=== PATIENT | male | born 1985 | race Caucasian/White ===

== ENCOUNTER 2019-12-01 20:05 | Emergency (ER) | payer BC ==
[2019-12-01 20:12] VITALS: BP 150/98
[2019-12-01] MEDS ORDERED: SULFAMETHOXAZOLE/TRIMETHOPRIM 800-160 MG TABLET PO ONE (20:45)
[2019-12-01] MEDS ORDERED: CLINDAMYCIN HCL 150 MG CAPSULE PO ONE (20:45)
[2019-12-01] MEDS ORDERED: DIPH/PERTUSS(ACELL)/TETANUS VAC/PF 0.5 ML SYR (>=10YO) IM ONE (20:46)
--- NOTE | 2019-12-01 20:55 | ER Document Report ---
ED Animal Bite - General Chief Complaint: Dog Bite Stated Complaint: DOG BITE/HANDS Time Seen by Provider: 12/01/19 20:36 Primary Care Provider: [facility] [Provider Group] - Follow up as needed [facility] [Provider Group] - Follow up as needed Mode of Arrival: Ambulatory Information source: Patient Notes: 33-year-old male presents to ED for complaint of dog bites to both hands and arms. He states that his neighbors dog which is a husky bit him just before coming to the emergency room. He states the neighbor states that the dog's shots are up-to-date but he did not see the records. He states he does note a dog and he does know the neighbor. He states he had a friend go over to the house to make sure that there was a rabies vaccination. Patient states she has a past medical history of seizures and a right clavicle fracture is no surgeries. He states he is allergic to penicillin. He does not smoke rarely drinks and does not use any illicit drugs. He states he does work at [employer] and lives with his family. Patient is alert oriented respirations regular nonlabored speaking in full sentences. He states he does not need any pain medicines at this time. REVIEW OF SYSTEMS: CONSTITUTIONAL : Denies fever, chills, or sweats. Denies recent illness. MUSCULOSKELETAL: Denies neck or back pain or joint pain or swelling. SKIN: Multiple shallow dog bites to both hands and both arms with multiple scratches to both arms from his neighbors dog HEMATOLOGIC : Denies easy bruising or bleeding. LYMPHATIC: Denies swollen, enlarged glands. NEUROLOGICAL: Denies altered mental status or loss of consciousness. Denies headache. Denies weakness or paralysis or loss of use of either side. Denies problems with gait or speech. Denies sensory or motor loss. PSYCHIATRIC: Denies anxiety or stress or depression. ALL OTHER SYSTEMS REVIEWED AND NEGATIVE. PHYSICAL EXAMINATION: GENERAL: Well-appearing, well-nourished and in no acute distress. HEAD: Atraumatic, normocephalic. LUNGS: No respiratory distress Musculoskeletal: Full range of motion to both hands and wrist. He states his pain level is about a 1 NEUROLOGICAL: Normal speech, normal gait. PSYCH: Normal mood, normal affect. SKIN: Patient has 2 puncture verma on the back of the left hand and 2 on the palm and he has dog scratches to the left arm. On the right hand he has 1 puncture wound to the index finger and 2 puncture verma to the back of the hand and one small puncture yesica to the thumb. He has 1/2 cm laceration from a dog bite to the right arm with multiple superficial scratches. TRAVEL OUTSIDE OF THE [place] IN LAST 30 DAYS: No - HPI Severity of injury: Scratched, Bitten Onset: Just prior to arrival Quality of pain: Achy Pain Level: 1 Context of attack: Approached animal Summary of what happened: Patient states the dog was off his leash going down the road. He states he stopped his car grabbed his collar and the dog started biting him. Type of animal: Dog Appearance of animal: Appeared well Animal captured or known: Yes Animal control notified: Yes Animal control form completed: Yes - Related Data Allergies/Adverse Reactions: amoxicillin [Amoxicillin] Allergy (Verified 02/07/14 23:20) Penicillins Allergy (Verified 02/07/14 23:20) Past Medical History - General Information source: Patient - Social History Smoking Status: Never Smoker Frequency of alcohol use: Rare Drug Abuse: None Occupation: [employer] Lives with: Family Family History: Reviewed & Not Pertinent Patient has suicidal ideation: No Patient has homicidal ideation: No - Past Medical History Cardiac Medical History: Reports: None Pulmonary Medical History: Reports: None EENT Medical History: Reports: None Neurological Medical History: Reports: Hx Seizures Endocrine Medical History: Reports: None Renal/ Medical History: Reports: None Malignancy Medical History: Reports None GI Medical History: Reports: None Musculoskeletal Medical History: Reports Hx Musculoskeletal Trauma - Clavicle right fracture Skin Medical History: Reports None Psychiatric Medical History: Reports: None Traumatic Medical History: Reports: Hx Fractures - Right clavicle fracture Infectious Medical History: Reports: None Surgical Hx: Negative Past Surgical History: Reports: None - Immunizations Immunizations up to date: Yes Hx Diphtheria, Pertussis, Tetanus Vaccination: Yes - 12/01/2019 Physical Exam - Vital signs Vitals: Temp Pulse Resp BP Pulse Ox 98.4 F 73 20 150/98 H 98 12/01/19 20:11 12/01/19 20:11 12/01/19 20:11 12/01/19 20:11 12/01/19 20:11 Course - Re-evaluation Re-evalutation: 12/01/19 21:09 Cleaned all wounds with soap and water, bacitracin bandage applied to each wound. Patient was treated with tetanus immunization Septra and clindamycin because he is allergic to penicillin and amoxicillin. He was given a prescription for 5 days of clindamycin and Septra. He was instructed to follow- up with his primary care doctor. He states he will follow-up with animal control to be sure that the neighbors dog was vaccinated or is quarantined and monitored. I have instructed him if he does not hear back from animal control does not find out that the [place] dog is vaccinated or if the dog gets sick he can always come back and get the rabies vaccination. Patient verbalized understanding and agreement with treatment plan and patient was discharged home after antibiotics and tetanus immunization - Vital Signs Vital signs: Temp Pulse Resp BP Pulse Ox 98.4 F 73 20 150/98 H 98 12/01/19 20:11 12/01/19 20:11 12/01/19 20:11 12/01/19 20:11 12/01/19 20:11 Discharge - Discharge Clinical Impression: Dog bite both hands and arms Condition: Stable Disposition: HOME, SELF-CARE Additional Instructions: Animal Bites Animal bites are often heavily contaminated with bacteria. In spite of thorough cleansing and proper treatment, these wounds frequently become infected. Bite wounds of the hands are especially prone to complications. Bites are dressed, if possible. Large wounds may require suturing after internal cleansing. Because of infection risk, some large wounds must remain unstitched. Your doctor is trained to advise you on the best treatment for your bite. Call the doctor at once if the wound becomes red, swollen, warm, increasingly painful, or if it begins to drain. Danger signs also include red streaks up the involved extremity, swollen glands in the groin or under the arm, or fever and chills. The risk of rabies from domestic animals is very low. Bats, sick animals, and wild animals may expose you to rabies. The physician, or the health department, will inform you if you will need to receive the rabies vaccine. NON-SUTURED LACERATION: Your laceration did not require suturing. Some lacerations cannot be sutured because of increased infection risk, while others simply don't need stitches because they are shallow or very short. Your injury should be protected while it heals. Usually complete healing takes 10 to 14 days. Keep the dressing clean and dry, and change it every day. If you notice increasing pain, redness, swelling, drainage, or tender lumps in the armpit or groin above the injury, infection may be present. You should call the doctor at once. SOAP CLEANSING: Gently wash the wound daily using a mild soap (like Ivory, Phisoderm, Neutrogena). Use warm water, rubbing gently until all debris, ooze, and crusting have been washed from the wound. Allow to dry briefly (about 10 minutes) after cleaning. Repeat this cleansing at least three times a day for the first two days and then once or twice a day. ANTIBIOTIC OINTMENT PROTECTION: Your wounds are such that dressing them is not practical or optional. After cleansing, you should apply a thin coating of antibiotic ointment (Bacitracin, not Neosporin) to the wounds at least three times daily. This lessens infection risk, and may decrease the amount of scarring. Use a q-tip or dull butter knife, not your finger, to apply this ointment. Any debris or ooze which builds up in the ointment should be gently rubbed off with a sterile gauze pad. Harder crusting may need to be gently scrubbed off with a clean wash cloth with soap and warm water, perhaps applying a warm, wet wash cloth to the wound for ten minutes first. Development of redness, severe itching, or blistering may mean allergy to the ointment. See the doctor. TRIMETHOPRIM-SULFA: You have been given a prescription for trimethoprim-sulfa (TMS, Septra, Bactrim). This is a combination antibiotic of the sulfa class, often used for urinary tract infections, middle ear infections, bronchitis, shigella intestinal infection, and Pneumocystis pneumonia. TMS is usually well-tolerated. Occasional side effects include nausea and decreased appetite. Septra is not recommended for infants less than two months of age. Do not take this medication if you have experienced severe side effects or allergy to sulfa medicine. You should stop this medicine at once and contact your physician if you develop any rash, joint pain, shortness of breath, bruising, or jaundice (yellow color in the skin), or if you develop any other new or unusual symptoms. Clindamycin You have been given a prescription for the antibiotic clindamycin. It is often prescribed for infections in the mouth, such as dental infections or abscesses, and for skin infections due to MRSA. It's important that you take all the medication, unless instructed otherwise by your physician. Failure to complete the entire course can result in relapse of your condition. Common side effects of antibiotics include nausea, intestinal cramping, or diarrhea. Women may develop vaginal yeast infections, and babies can get yeast (thrush) in the mouth following the use of antibiotics. Contact your physician if you develop significant side effects from this medication. Allergy to this antibiotic can result in hives, wheezing, faintness, or itching. If symptoms of allergy occur, stop the medication and call the doctor. FOLLOW-UP CARE: Please follow-up with your primary care__3___ days for an infection check If you have been referred to another physician for follow-up care, call that physicians office for an appointment as you were instructed. If you experience a significant change in your laceration, or if you are concerned there may be an infection (swelling, redness, drainage, increasing tenderness, red streaks, tender lumps in the armpit or groin above the laceration, or fever), return to the Emergency Department immediately re-evaluation. Prescriptions: Sulfamethoxazole/Trimethoprim [Bactrim Ds Tablet] 1 each PO BID #10 tablet Clindamycin HCl 300 mg PO TID #15 capsule Forms: Elevated Blood Pressure, Return to Work Referrals: [facility] [Provider [facility]] - Follow up as needed [facility] [Provider [facility]] - Follow up as needed
== END 2019-12-01 21:16 | disposition home or self-care (01) ==
LOC: ER 20:05
DX: S61.452A Open bite of left hand, initial encounter (principal); S61.451A Open bite of right hand, initial encounter; S41.152A Open bite of left upper arm, initial encounter; S41.151A Open bite of right upper arm, initial encounter; W54.0XXA Bitten by dog, initial encounter; Z23 Encounter for immunization; Z88.0 Allergy status to penicillin
CPT/HCPCS: 90471; 90715; 99283

== ENCOUNTER 2019-12-16 13:09 | Emergency (ER) | payer BC ==
--- NOTE | 2019-12-16 15:50 | ER Document Report ---
HPI - HPI Patient complains to provider of: Concern for rabies dog bite 12/01/2019 Time Seen by Provider: 12/16/19 15:35 Onset: Other - 12/01/19 Pain Level: 1 Context: 34-year-old male presented to ED for complaint of concerned that he needed a rabies shot. He states he got a letter from the animal control around the he stated that they tried to contact him and had not gotten a hold to him and he needed to get the rabies shots. It is now 15 December. Is been over 2 weeks since the dog bite. I did call animal control and spoke to 1 of the lab Associates and they stated that if he has not gotten sick by now that he does not need the rabies shot because if he had the rabies he would probably already be . Patient is alert oriented respirations regular nonlabored speaking in full sentences. He states he did feel little feverish this morning when he woke up and he had some runny nose and achy to his eyes but he did not want to be treated for that he just wanted to make sure he was okay with the dog bite. His heart rate would not go under 116. He did go up to [address] molina come and examine the patient. She states she would rather have labs EKG chest x-ray and have him seen in the back. I have ordered labs EKG chest x-ray and he will be seen by a provider in the main ED Associated Symptoms: Rhinnorhea, Sinus pain/drainage, Other - Runny nose and burning eyes Exacerbated by: Denies Relieved by: Denies Similar symptoms previously: Yes Recently seen / treated by doctor: Yes - ROS ROS below otherwise negative: Yes - CONSTITUTIONAL Constitutional: REPORTS: Fever - She felt warm did not check his temperature - EENT EENT: REPORTS: Nasal Drainage-Clear - NEURO Neurology: DENIES: Headache, Weakness, Vision blurred, Dizzinesss / Vertigo - CARDIOVASCULAR Cardiovascular: DENIES: Chest pain - RESPIRATORY Respiratory: DENIES: Trouble Breathing, Coughing - GASTROINTESTINAL Gastrointestinal: DENIES: Abdominal Pain, Nausea, Patient vomiting, Diarrhea, Constipation, Black / Bloody Stools - URINARY Urinary: DENIES: Dysuria, Urgency, Frequency - REPRODUCTIVE Reproductive: DENIES: :, Postmenopausal, Abnormal bleeding / discharge - MUSCULOSKELETAL Musculoskeletal: DENIES: Extremity pain, Back Pain, Neck Pain, Swelling - DERM Skin Color: Normal Skin Problems: None Past Medical History - General Information source: Patient - Social History Smoking Status: Never Smoker Chew tobacco use (# tins/day): No Frequency of alcohol use: Occasional Drug Abuse: None Family History: Reviewed & Not Pertinent Patient has suicidal ideation: No Patient has homicidal ideation: No - Past Medical History Cardiac Medical History: Reports: Hx Hypertension - no meds Pulmonary Medical History: Reports: None EENT Medical History: Reports: None Neurological Medical History: Reports: Hx Seizures Endocrine Medical History: Reports: None Renal/ Medical History: Reports: None Malignancy Medical History: Reports None GI Medical History: Reports: None Musculoskeletal Medical History: Reports Hx Musculoskeletal Trauma - Clavicle right fracture Skin Medical History: Reports None Psychiatric Medical History: Reports: None Traumatic Medical History: Reports: Hx Fractures - Right clavicle fracture Infectious Medical History: Reports: None Surgical Hx: Negative Past Surgical History: Reports: None - Immunizations Immunizations up to date: Yes Hx Diphtheria, Pertussis, Tetanus Vaccination: Yes - 12/01/2019 Vertical Provider Document - CONSTITUTIONAL Agree With Documented VS: Yes - INFECTION CONTROL TRAVEL OUTSIDE OF THE [place] IN LAST 30 DAYS: No - HEENT HEENT: Atraumatic, Normocephalic, PERRLA Notes: Clear nasal drainage, postnasal drip, cobblestone pattern to the oral mucosa - NECK Neck: Normal Inspection, Supple - RESPIRATORY Respiratory: Breath Sounds Normal, No Respiratory Distress, Chest Non-Tender - MUSCULOSKELETAL/EXTREMETIES Musculoskeletal/Extremeties: MAEW, FROM, Non-Tender - NEURO Level of Consciousness: Awake, Alert, Appropriate Motor/Sensory: No Motor Deficit, No Sensory Deficit, No Pronator Drift Deep Tendon Reflexes: 2+ - DERM Integumentary: Warm Course - Vital Signs Vital signs: Temp Pulse Resp BP Pulse Ox 99.8 F 117 H 14 166/87 H 98 12/16/19 15:38 12/16/19 13:28 12/16/19 13:28 12/16/19 13:28 12/16/19 13:28 Discharge - Discharge Clinical Impression: concern for rabies, dog bite 12/01/19 Condition: Stable Disposition: HOME, SELF-CARE Additional Instructions: UPPER RESPIRATORY ILLNESS: You have a viral infection of the respiratory passages -- a "cold." This common infection causes nasal congestion, drainage, and often sore throat and cough. It is highly contagious. The disease usually lasts about 10 to 14 days. There is no "cure" for the viral infection -- it must run its course. If there is a complication, such as bacterial infection in the nose, sinuses, middle ear, or bronchial tubes, antibiotics may be required. The antibiotics won't affect the virus. Drink plenty of fluids. A humidifier may help. An expectorant medication or decongestant may make you more comfortable. Use acetaminophen or ibuprofen for fever or aches. See the doctor if fever persists over two days, if there is any significant worsening of your symptoms, or if you simply fail to improve as expected. You have been recommended treatment with Claritin 10 mg Sudafed 30 mg and Mucinex 600 mg. These are all qimn-oje-scvetyj medications for cough cold congestion. You do need to call the go to the pharmacist to get the Sudafed from behind the counter please get a little red pills they are more effective. You could also use Flonase which is [id number] 1 spray each nostril twice a day. You could also use salt soda solution gargles. These will help to remove the drainage from the back your throat. Chloraseptic spray was hkoi-[id number]-[id number] that will also help with your sore throat. Salt and soda solution gargle 1 quart of water 1 tablespoon of salt 1 teaspoon of baking soda Mixed 3 ingredients together and boil for 1 minute Placed in a covered quart jar Use 1/2 ounce of cold solution to gargle 3 times a day As you heard me speak with the animal control, they stated you did not need the rabies vaccine now if you are healthy now you do not have rabies. He did take your name that his files. FOLLOW-UP CARE: If you have been referred to a physician for follow-up care, call the physicians office for an appointment as you were instructed or within the next two days. If you experience worsening or a significant change in your symptoms, notify the physician immediately or return to the Emergency Department at any time for re-evaluation. Referrals: [facility] [Provider Group] - Follow up as needed [facility] [Provider [facility]] - Follow up as needed [facility] [Provider Group] - Follow up as needed
--- NOTE | 2019-12-16 16:30 | ER Document Report ---
ED Medical Screen (RME) - General Chief Complaint: Dog Bite Stated Complaint: DOG BITE/RIGHT ARM,HAND Time Seen by Provider: 12/16/19 15:35 Primary Care Provider: [facility] [Provider Group] - Follow up as needed [facility] [Provider [facility]] - Follow up as needed [facility] [Provider [facility]] - Follow up as needed Mode of Arrival: Ambulatory Information source: Patient Notes: 34-year-old male presented to ED for complaint of concerned that he needed a rabies shot. He states he got a letter from the animal [employer] around the he stated that they tried to contact him and had not gotten a hold to him and he needed to get the rabies shots. It is now 15 December. Is been over 2 weeks since the dog bite. I did call animal [employer] and spoke to 1 of the lab Associates and they stated that if he has not gotten sick by now that he does not need the rabies shot because if he had the rabies he would probably already be . Patient is alert oriented respirations regular nonlabored speaking in full sentences. He states he did feel little feverish this morning when he woke up and he had some runny nose and achy to his eyes but he did not want to be treated for that he just wanted to make sure he was okay with the dog bite. His heart rate would not go under 116. He did go up to [address] molina come and examine the patient. She states she would rather have labs EKG chest x-ray and have him seen in the back. I have ordered labs EKG chest x-ray and he will be seen by a provider in the main ED I have greeted and performed a rapid initial assessment of this patient. A comprehensive ED assessment and evaluation of the patient, analysis of test results and completion of medical decision making process will be conducted by an additional ED providers. TRAVEL OUTSIDE OF THE [place] IN LAST 30 DAYS: No - Related Data Allergies/Adverse Reactions: amoxicillin [Amoxicillin] Allergy (Verified 02/07/14 23:20) Penicillins Allergy (Verified 02/07/14 23:20) Past Medical History - Social History Chew tobacco use (# tins/day): No Frequency of alcohol use: Occasional Drug Abuse: None - Past Medical History Cardiac Medical History: Reports: Hx Hypertension - no meds Pulmonary Medical History: Reports: None EENT Medical History: Reports: None Neurological Medical History: Reports: Hx Seizures Endocrine Medical History: Reports: None Renal/ Medical History: Reports: None Malignancy Medical History: Reports None GI Medical History: Reports: None Musculoskeltal Medical History: Reports Hx Musculoskeletal Trauma - Clavicle right fracture Skin Medical History: Reports None Psychiatric Medical History: Reports: None Traumatic Medical History: Reports: Hx Fractures - Right clavicle fracture Infectious Medical History: Reports: None Surgical Hx: Negative Past Surgical History: Reports: None - Immunizations Immunizations up to date: Yes Hx Diphtheria, Pertussis, Tetanus Vaccination: Yes - 12/01/2019 Physical Exam - Vital signs Vitals: Temp Pulse Resp BP Pulse Ox 99.8 F 117 H 14 166/87 H 98 12/16/19 13:28 12/16/19 13:28 12/16/19 13:28 12/16/19 13:28 12/16/19 13:28 Course - Vital Signs Vital signs: Temp Pulse Resp BP Pulse Ox 99.2 F 114 H 18 154/93 H 97 12/16/19 15:46 12/16/19 15:46 12/16/19 15:46 12/16/19 15:46 12/16/19 15:46 Doctor's Discharge - Discharge Clinical Impression: concern for rabies, dog bite 12/01/19 Condition: Stable Disposition: HOME, SELF-CARE Additional Instructions: UPPER RESPIRATORY ILLNESS: You have a viral infection of the respiratory passages -- a "cold." This common infection causes nasal congestion, drainage, and often sore throat and cough. It is highly contagious. The disease usually lasts about 10 to 14 days. There is no "cure" for the viral infection -- it must run its course. If there is a complication, such as bacterial infection in the nose, sinuses, middle ear, or bronchial tubes, antibiotics may be required. The antibiotics won't affect the virus. Drink plenty of fluids. A humidifier may help. An expectorant medication or decongestant may make you more comfortable. Use acetaminophen or ibuprofen for fever or aches. See the doctor if fever persists over two days, if there is any significant worsening of your symptoms, or if you simply fail to improve as expected. You have been recommended treatment with Claritin 10 mg Sudafed 30 mg and Mucinex 600 mg. These are all iqfh-aol-pfrnpwc medications for cough cold congestion. You do need to call the go to the pharmacist to get the Sudafed from behind the counter please get a little red pills they are more effective. You could also use Flonase which is vgbb-sgx-wmkbxbg 1 spray each nostril twice a day. You could also use salt soda solution gargles. These will help to remove the drainage from the back your throat. Chloraseptic spray was lvau-rvx-wbrjwlj that will also help with your sore throat. Salt and soda solution gargle 1 quart of water 1 tablespoon of salt 1 teaspoon of baking soda Mixed 3 ingredients together and boil for 1 minute Placed in a covered quart jar Use 1/2 ounce of cold solution to gargle 3 times a day As you heard me speak with the animal control, they stated you did not need the rabies vaccine now if you are healthy now you do not have rabies. He did take your name that his files. FOLLOW-UP CARE: If you have been referred to a physician for follow-up care, call the physicians office for an appointment as you were instructed or within the next two days. If you experience worsening or a significant change in your symptoms, notify the physician immediately or return to the Emergency Department at any time for re-evaluation. Referrals: [facility] [Provider Group] - Follow up as needed [facility] [Provider [facility]] - Follow up as needed [facility] [Provider [facility]] - Follow up as needed
[2019-12-16 16:57] LABS: ABSOLUTE LYMPHOCYTES (AUTO) 1.3 10^3/uL (0.5-4.7); ABSOLUTE MONOCYTES (AUTO) 0.7 10^3/uL (0.1-1.4); ABSOLUTE NEUT (AUTO) 13.6 10^3/uL (1.7-8.2); BASOPHILS % (AUTO) 0.3 % (0-2); EOSINOPHILS % (AUTO) 0.2 % (0-6); HEMATOCRIT 44.5 % (37.9-51.0); HEMOGLOBIN 15.3 g/dL (13.5-17.0); LYMPHOCYTES % (AUTO) 8.2 % (13-45); MEAN CORPUSCULAR HEMOGLOBIN 30.2 pg (27.0-33.4); MEAN CORPUSCULAR HGB CONC 34.4 g/dL (32.0-36.0); MEAN CORPUSCULAR VOLUME 88 fl (80-97); MONOCYTES % (AUTO) 4.3 % (3-13); PLATELET COUNT 259 10^3/uL (150-450); RED BLOOD COUNT 5.08 10^6/uL (4.35-5.55); RED CELL DISTRIBUTION WIDTH 12.5 % (11.5-14.0); TOTAL CELLS COUNTED % (AUTO) 100 %; WHITE BLOOD COUNT 15.7 10^3/uL (4.0-10.5)
--- NOTE | 2019-12-16 17:12 | ER Document Report ---
ED General - General Mode of Arrival: Ambulatory TRAVEL OUTSIDE OF THE [place] IN LAST 30 DAYS: No <LARRY HERNANDEZ - Last Filed: 12/16/19 20:52> <YANCI POSEY - Last Filed: 12/16/19 21:30> - General Chief Complaint: Dog Bite Stated Complaint: DOG BITE/RIGHT ARM,HAND Time Seen by Provider: 12/16/19 15:35 Primary Care Provider: [facility] [Provider Group] - Follow up as needed [facility] [Provider Group] - Follow up as needed [facility] [Provider Group] - Follow up as needed - HPI Notes: Patient is a 34-year-old male who presents to the ER for evaluation. Initially he came in because he had sustained a dog bite on November 30. He had a letter from health department recommending that he get his rabies vaccination. He showed up here, on December 15. As suspected, the health department confirmed that, had he contracted rabies, he would have already succumbed to this disease. I was called into evaluate the patient, however, because his heart rate was in the 120s. I went to evaluate the patient. He remained tachycardic. The patient denies any sensation of palpitations. He has no shortness of breath. He has no chest pain. He has intermittent nausea that he attributes to reflux. He denies any caffeine or illicit drug use. He does not have a primary care doctor. It was decided that he should come back in the ED for further eval uation of this tachycardia. On further questioning the patient did admit to a slight runny nose starting this morning, and pressure behind his eyes. (LARRY HERNANDEZ) - Related Data Allergies/Adverse Reactions: amoxicillin [Amoxicillin] Allergy (Verified 02/07/14 23:20) Penicillins Allergy (Verified 02/07/14 23:20) Past Medical History - General Information source: Patient - Social History Smoking Status: Never Smoker Chew tobacco use (# tins/day): No Frequency of alcohol use: Occasional Drug Abuse: None Family History: Reviewed & Not Pertinent, CAD - Past Medical History Cardiac Medical History: Reports: Hx Hypertension - no meds Pulmonary Medical History: Reports: None EENT Medical History: Reports: None Neurological Medical History: Reports: Hx Seizures Endocrine Medical History: Reports: None Renal/ Medical History: Reports: None Malignancy Medical History: Reports None GI Medical History: Reports: None Musculoskeletal Medical History: Reports Hx Musculoskeletal Trauma - Clavicle right fracture Skin Medical History: Reports None Psychiatric Medical History: Reports: None Traumatic Medical History: Reports: Hx Fractures - Right clavicle fracture Infectious Medical History: Reports: None Surgical Hx: Negative Past Surgical History: Reports: None - Immunizations Immunizations up to date: Yes Hx Diphtheria, Pertussis, Tetanus Vaccination: Yes - 12/01/2019 <LARRY HERNANDEZ - Last Filed: 12/16/19 20:52> Review of Systems - Review of Systems Constitutional: No symptoms reported EENT: No symptoms reported Cardiovascular: No symptoms reported Respiratory: No symptoms reported Gastrointestinal: No symptoms reported Genitourinary: No symptoms reported Musculoskeletal: No symptoms reported Skin: No symptoms reported Neurological/Psychological: No symptoms reported <LARRY HERNANDEZ - Last Filed: 12/16/19 20:52> Physical Exam <LARRY HERNANDEZ - Last Filed: 12/16/19 20:52> - Vital signs Vitals: Temp Pulse Resp BP Pulse Ox 99.8 F 117 H 14 166/87 H 98 12/16/19 13:28 12/16/19 13:28 12/16/19 13:28 12/16/19 13:28 12/16/19 13:28 - Notes Notes: Vital signs reviewed, please refer to chart. Head is normocephalic, atraumatic. Pupils equal round, reactive to light. Neck is supple without meningismus. Heart is regular rate and rhythm. Lungs are clear to auscultation bilaterally. Abdomen is soft, nontender, normoactive bowel sounds throughout. Extremities without cyanosis, clubbing. Posterior calves are nontender. Peripheral pulses are equal. Skin is warm and dry. Patient has a small puncture wound noted to the right volar forearm. No significant surrounding erythema, edema, induration noted. Neurovascularly intact distally. Patient is awake, alert, neurological exam is nonfocal. (LARRY HERNANDEZ) Course - Laboratory Result Diagrams: 12/16/19 16:40 12/16/19 16:40 - Diagnostic Test Radiology reviewed: Reports reviewed <LARRY HERNANDEZ - Last Filed: 12/16/19 20:52> - Laboratory Result Diagrams: 12/16/19 16:40 12/16/19 16:40 <YANCI POSEY - Last Filed: 12/16/19 21:30> - Re-evaluation Re-evalutation: 12/16/19 17:12 Patient presents to the emergency department for evaluation. He was initially h ere for dog bite/rabies prophylactics, but he was found to have a significant tachycardia. He is brought to the room labs are ordered. Patient is currently stable. 12/16/19 20:13 Laboratory investigations thus far are unremarkable. Patient is currently stable. IV fluids ordered. Awaiting urinalysis and urine drug screen. Patient has no risk factors for pulmonary embolus, no symptoms of pulmonary embolus. He is only mildly tachycardic. Continue to monitor. 12/16/19 20:24 I had gone back in for the third time to reevaluate the patient. On reexamination the patient felt warm to the touch. I did check his temperature which was 100.4 orally here in the department. He already has IV fluids ordered. I did order Tylenol. I am awaiting his urinalysis. I did add thyroid studies as he was afebrile initially, but I have a much less clinical concern for hyperthyroidism given his current fever. We will add COVID test. Please note I also explained to the patient that he has signs of LVH and left axis deviation on his EKG. I talked to him about his longstanding blood pressure issues, and the fact that he likely needs treatment. I strongly encouraged him to follow-up with a primary care provider. Patient is stable. 12/16/19 20:53 Patient has received Tylenol and is receiving IV fluids. His current heart rate is 101. I fully expect he will continue to lower. I suspect this is the etiology of his mild tachycardia. I explained to him that he is a person under investigation for COVID-19, he should isolate at home until test results return. He voiced understanding to this. I also told him he needs to follow-up in regards to his uncontrolled hypertension and again reinforced the fact that LVH was apparent on his EKG. He voiced understanding and will be discharged. (LARRY HERNANDEZ) 12/16/19 21:30 I received the patient in signout, pending TSH. TSH has resulted and is within normal limits. Patient's heart rate is currently 99. He will be discharged at this time in stable condition. (YANCI POSEY) - Vital Signs Vital signs: Temp Pulse Resp BP Pulse Ox 100.4 F 112 H 16 146/79 H 97 12/16/19 20:23 12/16/19 20:08 12/16/19 20:08 12/16/19 20:08 12/16/19 20:08 - Laboratory Laboratory results interpreted by me: 12/16/19 12/16/19 16:40 16:40 WBC 15.7 H Lymph % (Auto) 8.2 L Absolute Neuts (auto) 13.6 H Seg Neutrophils % 87.0 H Sodium 136.2 L Glucose 159 H - Diagnostic Test Radiology results interpreted by me: 12/16/19 20:25 Chest X-Ray 12/16/19 16:27 IMPRESSION: NO ACUTE FINDINGS. (LARRY HERNANDEZ) Discharge <LARRY HERNANDEZ - Last Filed: 12/16/19 20:52> <YANCI POSEY - Last Filed: 12/16/19 21:30> - Discharge Clinical Impression: concern for rabies, dog bite 12/01/19, Fever, Tachycardia, Person under investigation for COVID-19, Elevated blood pressure reading Condition: Stable Disposition: HOME, SELF-CARE Instructions: COVID-19 Guidance for Persons Under Investigation, Fever ([facility]), High Blood Pressure ([facility]) Additional Instructions: It is likely that your elevated heart rate today was secondary to fever and infection. This is likely a viral upper respiratory infection. You have been tested for COVID-19. Test results will take between 72 and 96 hours. Please isolate at home until results are received. As discussed, your blood pressure here was elevated, and her EKG reveals signs that your heart has been working hard against this elevated blood pressure for some time. You need to establish care with a primary care doctor, seek out treatment for high blood pressure. Rest, stay well-hydrated, Tylenol as needed for fever. Follow-up with primary care this week. If you develop increased difficulty breathing, chest pain, or any other new or concerning symptoms, please return immediately to the emergency department for evaluation. Referrals: [facility] [Provider Group] - Follow up as needed [facility] [Provider Group] - Follow up as needed [facility] [Provider Group] - Follow up as needed
--- NOTE | 2019-12-16 17:14 | RADIOLOGY REPORT (SQ) ---
EXAM DESCRIPTION: CHEST 2 VIEWS IMAGES COMPLETED DATE/TIME: 12/16/2019 4:58 pm REASON FOR STUDY: Tachycardia COMPARISON: 02/08/2014 TECHNIQUE: Frontal and lateral radiographic views of the chest acquired. NUMBER OF VIEWS: Two view. LIMITATIONS: None. FINDINGS: LUNGS AND PLEURA: No pneumothorax. No consolidation or pleural effusion. MEDIASTINUM AND HILAR STRUCTURES: Stable. HEART AND VASCULAR STRUCTURES: Stable. BONES: No acute findings. HARDWARE: None in the chest. OTHER: No other significant finding. IMPRESSION: NO ACUTE FINDINGS. TECHNICAL DOCUMENTATION: JOB ID: [id number] [place]-72 2010 [employer]- All Rights Reserved Reading location - IP/workstation name: [employer]
[2019-12-16 17:15] LABS: ALBUMIN 4.6 g/dL (3.5-5.0); ALKALINE PHOSPHATASE 55 U/L (38-126); ANION GAP 10 (5-19); ASPARTATE AMINO TRANSFERASE 23 U/L (17-59); BILIRUBIN,DIRECT 0.2 mg/dL (0.0-0.4); BILIRUBIN,TOTAL 0.8 mg/dL (0.2-1.3); BLOOD UREA NITROGEN 13 mg/dL (7-20); CALCIUM 9.7 mg/dL (8.4-10.2); CARBON DIOXIDE 25 mmol/L (22-30); CHLORIDE 101 mmol/L (98-107); GLUCOSE 159 mg/dL (75-110); POTASSIUM 4.2 mmol/L (3.6-5.0); TOTAL PROTEIN 7.5 g/dL (6.3-8.2)
[2019-12-16] MEDS ORDERED: RINGERS SOLUTION,LACTATED 1,000 ML IV ONE (18:20)
[2019-12-16] MEDS ORDERED: ACETAMINOPHEN 325 MG TABLET PO ONE (20:24)
[2019-12-16 20:42] LABS: APPEARANCE,URINE CLEAR; BILIRUBIN,URINE NEGATIVE (NEGATIVE); COLOR,URINE YELLOW; GLUCOSE, URINE NEGATIVE (NEGATIVE); KETONES,URINE NEGATIVE (NEGATIVE); LEUKOCYTE ESTERASE,URINE NEGATIVE (NEGATIVE); NITRITE,URINE NEGATIVE (NEGATIVE); PROTEIN,URINE NEGATIVE (NEGATIVE); URINE SPECIFIC GRAVITY 1.019; UROBILINOGEN,URINE NEGATIVE mg/dL (<2.0)
[2019-12-16 20:53] LABS: URINE AMPHETAMINES SCREEN NEGATIVE; URINE BARBITURATES SCREEN NEGATIVE; URINE BENZODIAZEPINES SCREEN NEGATIVE; URINE COCAINE SCREEN NEGATIVE; URINE MARIJUANA (THC) SCREEN NEGATIVE; URINE METHADONE SCREEN NEGATIVE; URINE PHENCYCLIDINE SCREEN NEGATIVE
[2019-12-16 22:32] VITALS: BP 132/71
--- NOTE | 2019-12-17 01:38 | EKG REPORT ---
SEVERITY:- ABNORMAL ECG - SINUS RHYTHM LEFT ANTERIOR FASCICULAR BLOCK : Confirmed by: Cynthia Avalos MD 17-Dec-2019 01:37:21
== END 2019-12-16 22:31 | disposition home or self-care (01) ==
LOC: ER 13:09
DX: R50.9 Fever, unspecified (principal); R00.0 Tachycardia, unspecified; S51.851A Open bite of right forearm, initial encounter; W54.0XXA Bitten by dog, initial encounter; R11.0 Nausea; I10 Essential (primary) hypertension; R09.89 Other specified symptoms and signs involving the circulatory and respiratory systems; Z88.0 Allergy status to penicillin; Z20.3 Contact with and (suspected) exposure to rabies; Z20.828 Contact with and (suspected) exposure to other viral communicable diseases
CPT/HCPCS: 93005; 99285; 96360; 36415; 83690; 84443; 85025; 80053; 81001; 84484; 80307; 71046; 93010; U0003; J7120; C9803; 87635